=== PATIENT | female | born 1960 | race Caucasian/White ===

== ENCOUNTER → 2022-10-02 09:35 | Outpatient (CLI) | payer OTHER, SELFPAY ==
[2022-10-02 19:34] LABS: BUN Creatinine Ratio 21.2 (6-22); Blood Urea Nitrogen 14 mg/dL (7-17); Carbon Dioxide 29 mmol/L (22-32); Chloride 106 mmol/L (98-107); Cholesterol 209 mg/dL (140-199); Estimated Glomerular Filt Rate > 60 mL/min (>60); Glucose 98 mg/dL (80-110); HDL Cholesterol 57 mg/dL (40-60); HEMOLYSIS < 15 (0-50); LDL Cholesterol Calculated 136 mg/dL (<100); Potassium 4.3 mmol/L (3.4-5.1); Sodium 141 mmol/L (137-145); Triglycerides 80 mg/dL (35-150)
[2022-10-04 15:55] LABS: Hep C Virus Ab w/Reflex Quant NEGATIVE s/c (NEGATIVE)
== END ==
PROVIDERS: PCP Family Medicine; Visit Provider Family Medicine
DX: Z13.1 Encounter for screening for diabetes mellitus (principal); Z11.59 Encounter for screening for other viral diseases; Z13.6 Encounter for screening for cardiovascular disorders
CPT/HCPCS: 80048; 80061; 86803

== ENCOUNTER → 2022-10-24 13:47 | Outpatient (CLI) | payer OTHER, SELFPAY ==
[2022-10-24 19:45] LABS: Alanine Aminotransferase 103 IU/L (<35); Albumin Globulin Ratio 1.3 (1.0-2.8); Alkaline Phosphatase 181 U/L (38-126); Aspartate Aminotransferase 66 IU/L (14-36); BUN Creatinine Ratio 17.9 (6-22); Bilirubin Total 0.6 mg/dL (0.2-1.3); Blood Urea Nitrogen 10 mg/dL (7-17); Calcium 9.3 mg/dL (8.4-10.2); Carbon Dioxide 28 mmol/L (22-32); Chloride 100 mmol/L (98-107); Estimated Glomerular Filt Rate > 60 mL/min (>60); Globulin 3.2 g/dL (1.7-4.1); Glucose 110 mg/dL (80-110); HEMOLYSIS 20 (0-50); Sodium 136 mmol/L (137-145); Total Protein 7.2 g/dL (6.3-8.2)
[2022-10-24 20:57] LABS: Add Manual Diff / Slide Review NO; Basophils Absolute Auto 0 /uL (0-100); Basophils Percent Auto 0.8 % (0-2); Eosinophils Absolute Auto 100 /uL (0-450); Eosinophils Percent Auto 2.3 % (2-4); Hematocrit 41.8 % (36-46); Hemoglobin 14.2 g/dL (12.0-16.0); Lymphocytes Absolute Auto 2900 /uL (1100-4500); Lymphocytes Percent Auto 49.1 % (25-40); Mean Corpuscular HGB Conc 33.8 % (30-36); Mean Corpuscular Hemoglobin 31.3 PG (26-34); Mean Corpuscular Volume 92.6 fL (80-100); Monocytes Absolute Auto 400 /uL (0-900); Monocytes Percent Auto 7.6 % (3-14); Neutrophils Absolute Auto 2400 /uL (1500-7000); Neutrophils Percent Auto 40.2 % (50-75); Platelet Count 243 X10^3/uL (150-400); Red Blood Cell Count 4.52 X10^6/uL (4.0-5.2); Red Cell Distribution Width 13.2 % (11.6-14.8); White Blood Cell Count 5.9 X10^3/uL (4.5-11.0)
== END ==
PROVIDERS: PCP Family Medicine; Visit Provider Physician Assistant
DX: R51.9 Headache, unspecified (principal)
CPT/HCPCS: 80053; 85025

== ENCOUNTER 2022-10-25 18:43 | Emergency (ER) | payer OTHER, SELFPAY ==
[2022-10-25 18:48] VITALS: BP 135/65; PULSE 90; RESP 15; TEMP 36.9; O2SAT 99; BMI 25.0
--- NOTE | 2022-10-25 19:04 | ED.HA ---
HPI - Headache General Chief Complaint: Headache Stated Complaint: Headaches, Ref by Doctor Time Seen by Provider: 10/25/22 18:53 Mode of arrival: Ambulatory History of Present Illness HPI Narrative: 62-year-old woman with no significant medical history who takes no medications, does not typically have headaches presents at the request of the physician podiatry assistant whom she saw yesterday. She states on October 17 she developed fevers, headaches, myalgias lasted approximately 3-4 days and did seem to resolve with Tylenol. She is had persistent temperatures into the 100 degree range and wakes with morning headaches that resolve with Tylenol. She did do a rapid influenza test that was negative ( we did discuss the very poor sensitivity and specificity with a rapid influenza test) and did have an influenza vaccine this year. She describes no chest pain, palpitations, minimal cough that has resolved, slight nausea associated with pain from headache that resolves with Tylenol. No vomiting or abdominal pain. Related Data Home Medications Medication Instructions Recorded Confirmed multivitamin 1 tab PO DAILY 09/04/22 10/24/22 Previous Rx's Medication Instructions Recorded estradiol 0.01% (0.1 mg/gram) 1 g vaginal 3XW #42.5 grams 09/04/22 vaginal cream fluticasone propionate 50 1 spray intranasal DAILY #16 grams 10/24/22 mcg/actuation nasal spray,suspension (Flonase Allergy Relief) naproxen 500 mg tablet 500 mg PO BID PRN pain #30 tabs 10/25/22 Allergies Allergy/AdvReac Type Severity Reaction Status Date / Time No Known Drug Allergies Allergy Verified 10/25/22 18:48 Review of Systems Review of Systems Narrative: Pertinent positive and negative findings as per HPI Patient History Medical History Chicken pox (~1965) Near sighted Puncture wound Vision disorder Surgical History Anesthesia History of dental surgery Family History Father Memory loss Cancer Brother Hypertension Aneurysm Brother Alcohol abuse Sister Skin cancer History of heart attack Grandfather Cancer History of heart disease Hypertension Stroke Grandmother History of heart disease Hypertension Grandfather Cancer Social History Smoking Status: Former smoker alcohol intake: current additional social history: exercise: yoga, pickleball, HIIT Smoking Status: Former smoker alcohol intake frequency: a few times a month Substance Use Type: does not use Exam Initial Vital Signs Initial Vital Signs: Vital Signs Temperature 98.4 F 10/25/22 18:48 Pulse Rate 90 10/25/22 18:48 Respiratory Rate 15 10/25/22 18:48 Blood Pressure 135/65 10/25/22 18:48 Pulse Oximetry 99 10/25/22 18:48 Oxygen Delivery Method Room Air 10/25/22 18:48 General: Healthy appearing, in no acute distress. Able to give a complete and coherent history. Well-nourished well-developed HEENT: Moist mucous membranes, normal sclera with reactive pupils, tympanic membranes are pearly [place] bilaterally Neck: no cervical adenopathy, supple Respiratory: Lungs are clear to auscultation, no wheezing no rales no rhonchi. Full and symmetrical air movement Cardiac: Regular rate and rhythm no murmurs no bruits Abdomen: Soft, nontender, good bowel tones, no flank pain Skin: Warm and dry, no rashes Neurologic: Grossly neurologically intact with no obvious asymmetries or abnormalities Extremities: No trauma, well perfused Psych: Cooperative, appropriate insight and affect Course Vital Signs Vital signs: Vital Signs - 8 hr 10/25/22 18:48 Temperature 98.4 F Pulse Rate 90 Respiratory Rate 15 Blood Pressure 135/65 Pulse Oximetry 99 Oxygen Delivery Method Room Air MDM - Headache MDM Narrative Medical decision making narrative: CC: Day 7 of viral syndrome with continued fevers to 100? and morning headaches resolve with Tylenol. She was told her liver function studies were slightly elevated. This is an acute problem, on diagnosed with uncertain prognosis Data collected from: patient Social determinants of health that may influence the patients condition: patient does live on [facility] Differential considered: viral syndrome, meningitis, brain tumor, entero abdominal pathology. Exam documented above, pertinent findings include: completely normal exam with no suggestion of bacterial superinfection, normal neurologic exam Lab Test results independently reviewed as above. Pertinent findings: chemistries from yesterday show AST at 66, ALT at 103 alk-phos at 181 remainder of chemistries are unremarkable CBC is unremarkable Discussion: this otherwise healthy lady is describing typical resolution of influenza with fevers gradually decreasing and now no longer technically meeting criteria for fever. Morning headaches that resolve with Tylenol that have been present only since the infection started. I do not think that this represents brain tumor, meningitis, bacterial superinfection or alternate explanation at that time I believe she is safe for continued conservative management and Tylenol as needed for the headache. I did recommend repeating blood tests in approximately 2 months. She will follow-up with her primary care doctor Discharge Plan Departure Patient Disposition: Home Clinical Impression: Acute viral syndrome Instructions: DI for Viral Syndrome Activity Restrictions/Additional Instructions: thank you for coming in today on day 7 of symptoms with a recent upper respiratory infection, I believe that you are still well within expected time limits for a viral syndrome. Influenza itself typically has a bit of a longer time frame and this year has been notable for headaches and persistent fevers. Often with acute viral syndromes, we can find minor laboratory abnormalities such as the slight increase in your AST, ALT and alkaline phosphatase ( liver studies). I suspect this is more an acute phase reactant, your body simply reacting to a virus, rather than any more significant pathology. Fortunately, you are not describing any significant red flags and your exam is very reassuring. At this point I would recommend continued conservative management with Tylenol for the headaches. If you still find that your having symptoms after another 4-5 days it would be worth seeing your primary care provider again. I would also recommend repeating blood work to make sure that your liver studies have returned to normal in 1-2 months. If you find that you are getting worse or develop any new symptoms, please feel free to return to the emergency department for further evaluation. Prescriptions: No Action naproxen 500 mg tablet 500 mg PO BID PRN (Reason: pain) Qty: 30 0RF Rx Instructions: Take with food fluticasone propionate [Flonase Allergy Relief] 50 mcg/actuation spray,suspension 1 spray intranasal DAILY Qty: 16 0RF Rx Instructions: administer into each nostril multivitamin Tablet 1 tab PO DAILY estradiol 0.01 % (0.1 mg/gram) cream 1 g vaginal 3XW Qty: 42.5 6RF Rx Instructions: and apply to outside area as well. Referrals: Sonia Spencer MD [Primary Care Provider] - Stand Alone Forms: Patient Portal/API
== END 2022-10-25 19:20 | disposition home or self-care (01) ==
PROVIDERS: Emergency Provider Emergency Medicine; PCP Family Medicine
DX: B34.9 Viral infection, unspecified (principal)
CPT/HCPCS: 99281

== ENCOUNTER → 2022-10-29 11:59 | Outpatient (CLI) | payer OTHER, SELFPAY ==
[2022-10-29 19:51] LABS: Monotest Negative (Negative)
[2022-10-29 20:01] LABS: Erythrocyte Sedimentation Rate 8 MM/HR (0-20)
[2022-10-29 20:06] LABS: Alanine Aminotransferase 191 IU/L (<35); Albumin 3.8 g/dL (3.5-5.0); Albumin Globulin Ratio 1.1 (1.0-2.8); Alkaline Phosphatase 377 U/L (38-126); Aspartate Aminotransferase 131 IU/L (14-36); BUN Creatinine Ratio 25.8 (6-22); Bilirubin Total 0.9 mg/dL (0.2-1.3); Blood Urea Nitrogen 17 mg/dL (7-17); Carbon Dioxide 26 mmol/L (22-32); Chloride 101 mmol/L (98-107); Creatine Kinase 28 U/L (30-135); Estimated Glomerular Filt Rate > 60 mL/min (>60); Globulin 3.5 g/dL (1.7-4.1); Glucose 161 mg/dL (80-110); HEMOLYSIS 39 (0-50); Potassium 4.1 mmol/L (3.4-5.1); Sodium 135 mmol/L (137-145); Total Protein 7.3 g/dL (6.3-8.2)
[2022-10-29 20:13] LABS: Basophils Absolute Auto 100 /uL (0-100); Eosinophils Absolute Auto 0 /uL (0-450); Eosinophils Percent Auto 0.4 % (2-4); Hematocrit 42.3 % (36-46); Hemoglobin 14.5 g/dL (12.0-16.0); Lymphocytes Absolute Auto 4300 /uL (1100-4500); Lymphocytes Percent Auto 52.1 % (25-40); Mean Corpuscular HGB Conc 34.4 % (30-36); Mean Corpuscular Hemoglobin 31.3 PG (26-34); Mean Corpuscular Volume 91.1 fL (80-100); Monocytes Absolute Auto 300 /uL (0-900); Monocytes Percent Auto 3.9 % (3-14); Neutrophils Absolute Auto 3500 /uL (1500-7000); Neutrophils Percent Auto 42.6 % (50-75); Platelet Count 254 X10^3/uL (150-400); Red Blood Cell Count 4.64 X10^6/uL (4.0-5.2); White Blood Cell Count 8.3 X10^3/uL (4.5-11.0)
[2022-10-29 20:15] LABS: Add Manual Diff / Slide Review SLIDE REVIEW; RBC Morphology Normal Morphology; Reactive Lymphocytes 2+
[2022-11-01 11:00] LABS: HBsAg Screen Negative (Negative); Hepatitis A Antibody IgM Negative (Negative); Hepatitis B Core Antibody IgM Negative (Negative); Hepatitis C Antibody Non Reactive (Non Reactive)
== END ==
PROVIDERS: PCP Family Medicine; Visit Provider Family Medicine
DX: R11.0 Nausea (principal); R50.9 Fever, unspecified; R53.83 Other fatigue; R79.89 Other specified abnormal findings of blood chemistry; R82.998 Other abnormal findings in urine
CPT/HCPCS: 80053; 80074; 82550; 85025; 85651; 86140; 86318

== ENCOUNTER → 2022-11-20 13:51 | Outpatient (CLI) | payer OTHER, SELFPAY ==
[2022-11-20 19:22] LABS: Add Manual Diff / Slide Review NO; Basophils Absolute Auto 100 /uL (0-100); Basophils Percent Auto 0.8 % (0-2); Eosinophils Absolute Auto 100 /uL (0-450); Eosinophils Percent Auto 1.2 % (2-4); Hematocrit 37.1 % (36-46); Hemoglobin 12.6 g/dL (12.0-16.0); Lymphocytes Absolute Auto 4800 /uL (1100-4500); Lymphocytes Percent Auto 63.7 % (25-40); Mean Corpuscular Hemoglobin 31.4 PG (26-34); Mean Corpuscular Volume 92.3 fL (80-100); Monocytes Absolute Auto 500 /uL (0-900); Monocytes Percent Auto 6.5 % (3-14); Neutrophils Absolute Auto 2100 /uL (1500-7000); Neutrophils Percent Auto 27.8 % (50-75); Platelet Count 353 X10^3/uL (150-400); Red Blood Cell Count 4.02 X10^6/uL (4.0-5.2); White Blood Cell Count 7.6 X10^3/uL (4.5-11.0)
[2022-11-20 19:35] LABS: Alanine Aminotransferase 106 IU/L (<35); Albumin 3.9 g/dL (3.5-5.0); Albumin Globulin Ratio 1.2 (1.0-2.8); Alkaline Phosphatase 160 U/L (38-126); Aspartate Aminotransferase 72 IU/L (14-36); BUN Creatinine Ratio 22.2 (6-22); Bilirubin Total 1.3 mg/dL (0.2-1.3); Blood Urea Nitrogen 14 mg/dL (7-17); C-Reactive Protein Quant 0.5 mg/dL (<1.0); Calcium 9.2 mg/dL (8.4-10.2); Carbon Dioxide 28 mmol/L (22-32); Chloride 103 mmol/L (98-107); Cholesterol 236 mg/dL (140-199); Estimated Glomerular Filt Rate > 60 mL/min (>60); Globulin 3.3 g/dL (1.7-4.1); Glucose 97 mg/dL (80-110); HDL Cholesterol 40 mg/dL (40-60); HEMOLYSIS < 15 (0-50); LDL Cholesterol Calculated 171 mg/dL (<100); Potassium 4.6 mmol/L (3.4-5.1); Sodium 137 mmol/L (137-145); Total Protein 7.2 g/dL (6.3-8.2); Triglycerides 124 mg/dL (35-150)
[2022-11-20 19:42] LABS: Gamma Glutamyl Transpeptidase 111 U/L (12-43)
[2022-11-22 00:19] LABS: x Labcorp Estim. Avg Glu (eAG) 128 mg/dL (.); x Labcorp Hemoglobin A1c 6.1 % (4.8-5.6)
== END ==
PROVIDERS: Physician Assistant; PCP Family Medicine; Visit Provider Family Medicine
DX: D72.820 Lymphocytosis (symptomatic) (principal); R79.89 Other specified abnormal findings of blood chemistry; R73.09 Other abnormal glucose; R74.8 Abnormal levels of other serum enzymes
CPT/HCPCS: 80053; 80061; 82977; 83036; 85025; 86140

== ENCOUNTER → 2023-01-09 14:07 | Outpatient (CLI) | payer OTHER, SELFPAY ==
[2023-01-09 19:30] LABS: Alanine Aminotransferase 28 IU/L (<35); Albumin 3.9 g/dL (3.5-5.0); Albumin Globulin Ratio 1.3 (1.0-2.8); Alkaline Phosphatase 80 U/L (38-126); Aspartate Aminotransferase 32 IU/L (14-36); BUN Creatinine Ratio 21.2 (6-22); Bilirubin Total 1.6 mg/dL (0.2-1.3); Blood Urea Nitrogen 14 mg/dL (7-17); Calcium 9.3 mg/dL (8.4-10.2); Carbon Dioxide 29 mmol/L (22-32); Chloride 102 mmol/L (98-107); Estimated Glomerular Filt Rate > 60 mL/min (>60); Glucose 93 mg/dL (80-110); HEMOLYSIS < 15 (0-50); Potassium 4.5 mmol/L (3.4-5.1); Sodium 136 mmol/L (137-145); Total Protein 6.9 g/dL (6.3-8.2)
[2023-01-09 19:42] LABS: Add Manual Diff / Slide Review NO; Basophils Absolute Auto 0 /uL (0-100); Basophils Percent Auto 0.8 % (0-2); Eosinophils Absolute Auto 100 /uL (0-450); Eosinophils Percent Auto 1.9 % (2-4); Hematocrit 34.8 % (36-46); Hemoglobin 11.9 g/dL (12.0-16.0); Lymphocytes Absolute Auto 3000 /uL (1100-4500); Lymphocytes Percent Auto 59.8 % (25-40); Mean Corpuscular HGB Conc 34.2 % (30-36); Mean Corpuscular Hemoglobin 32.1 PG (26-34); Mean Corpuscular Volume 93.9 fL (80-100); Monocytes Absolute Auto 300 /uL (0-900); Neutrophils Absolute Auto 1600 /uL (1500-7000); Neutrophils Percent Auto 31.5 % (50-75); Platelet Count 269 X10^3/uL (150-400); Red Cell Distribution Width 15.8 % (11.6-14.8)
== END ==
PROVIDERS: PCP Family Medicine; Visit Provider Family Medicine
DX: D72.820 Lymphocytosis (symptomatic) (principal); R79.89 Other specified abnormal findings of blood chemistry
CPT/HCPCS: 80053; 85025

== ENCOUNTER → 2023-02-06 13:57 | Outpatient (CLI) | payer OTHER, SELFPAY ==
[2023-02-08 15:13] LABS: Fecal Immunochemical Test Negative (Negative)
== END ==
PROVIDERS: PCP Family Medicine; Visit Provider Family Medicine
DX: D64.9 Anemia, unspecified (principal)
CPT/HCPCS: 82274

== ENCOUNTER → 2023-02-11 11:01 | Outpatient (CLI) | payer OTHER, SELFPAY ==
[2023-02-11 19:35] LABS: HEMOLYSIS < 15 (0-50); Iron 117 ug/dL (37-170)
[2023-02-11 19:48] LABS: Percent Iron Saturation 36 % (15-50); Total Iron Binding Capacity 328 ug/dL (265-497); Transferrin 245 mg/dL (206-381)
[2023-02-11 20:00] LABS: Add Manual Diff / Slide Review NO; Basophils Absolute Auto 100 /uL (0-100); Eosinophils Absolute Auto 100 /uL (0-450); Eosinophils Percent Auto 1.9 % (2-4); Hematocrit 37.7 % (36-46); Hemoglobin 12.7 g/dL (12.0-16.0); Lymphocytes Absolute Auto 3200 /uL (1100-4500); Lymphocytes Percent Auto 60.4 % (25-40); Mean Corpuscular HGB Conc 33.8 % (30-36); Mean Corpuscular Hemoglobin 32.2 PG (26-34); Mean Corpuscular Volume 95.2 fL (80-100); Monocytes Absolute Auto 400 /uL (0-900); Monocytes Percent Auto 7.2 % (3-14); Neutrophils Absolute Auto 1500 /uL (1500-7000); Neutrophils Percent Auto 29.5 % (50-75); Platelet Count 258 X10^3/uL (150-400); Red Blood Cell Count 3.96 X10^6/uL (4.0-5.2); Red Cell Distribution Width 13.7 % (11.6-14.8); White Blood Cell Count 5.2 X10^3/uL (4.5-11.0)
[2023-02-11 20:11] LABS: Ferritin 109 ng/mL (11-264)
[2023-02-11 20:17] LABS: Reticulocyte Count, Percent 0.6 % (1.1-2.6)
[2023-02-11 20:25] LABS: Vitamin B12 381 pg/mL (239-931)
[2023-02-11 20:44] LABS: Folate 15.6 ng/mL (2.76-20.0)
== END ==
PROVIDERS: PCP Family Medicine; Visit Provider Family Medicine
DX: D64.9 Anemia, unspecified (principal)
CPT/HCPCS: 82607; 82728; 82746; 83540; 83550; 85025; 85045

== ENCOUNTER → 2025-05-05 11:42 | Outpatient (CLI) | payer BC, SELFPAY ==
--- NOTE | 2025-05-05 11:43 | DI.MG.S_ITS ---
MM screening mammo BI: 05/05/2025. BI-RADS: 1 CLINICAL: 65-year old female for bilateral screening mammogram. Tyrer-Cuzick lifetime risk of 15.8%. No personal or first-degree family history of breast cancer. Current reported family history of breast cancer: maternal grandmother and paternal aunt. PRIOR EXAMS Outside priors 04/15/2024, 12/25/2022, 10/17/2021, and 06/10/2019. MAMMOGRAPHY TECHNIQUE: 2D and 3D (tomosynthesis) digital mammographic views obtained, with additional images as needed for full coverage. Current study was also evaluated with a Computer Aided Detection (CAD) system. DENSITY C. The breasts are heterogeneously dense, which may obscure small masses. MAMMOGRAPHY FINDINGS Bilateral: No suspicious mass, asymmetry, microcalcification, or other abnormality seen. IMPRESSION: * No evidence of malignancy. RECOMMENDATIONS Bilateral * Annual screening mammography. OVERALL ASSESSMENT CATEGORY BI-RADS-1: Negative. The [employer] recommends annual screening mammography beginning at age 40 for women with average risk of breast cancer. ELECTRONICALLY SIGNED: Gifty Vieyra M.D. on 05/10/2025 at 11:22:24 AM PT Interpreting Station ID: [id number]
== END ==
LOC: MAMMO 11:43
PROVIDERS: PCP Family Medicine; Referring Provider Family Medicine; Visit Provider Family Medicine
DX: Z12.31 Encounter for screening mammogram for malignant neoplasm of breast (principal); R92.333 Mammographic heterogeneous density, bilateral breasts; Z80.3 Family history of malignant neoplasm of breast
CPT/HCPCS: 77063; 77067